=== PATIENT | female | born 1950 | race Caucasian/White ===

== ENCOUNTER 2017-05-26 13:14 | Inpatient (IN) | payer OTHER ==
[~2017-05-26] VITALS: Ht 165.1 cm; Wt 67.6 kg
[2017-05-26] MEDS ORDERED: METFORMIN HCL850 MG PO (15:39)
[2017-05-26] MEDS ORDERED: ZOCOR5 MG PO (15:39)
[2017-05-26] MEDS ORDERED: COZAAR100 MG PO (15:39)
[2017-05-26] MEDS ORDERED: TRAZODONE HCL50 MG PO (15:40)
== END 2017-05-31 11:24 | disposition home or self-care (01) | DRG 735 ==
LOC: O/R 05-29 05:00 → OB/GYN 05-29 05:00 → SURH 05-29 11:30 → OB/GYN 05-29 13:18
PROVIDERS: Obstetrics & Gynecology Gynecologic Oncology
PROC: 07TD0ZZ Resection of Aortic Lymphatic, Open Approach (ICD-10-PCS; 2017-05-29)
PROC: 0UT20ZZ Resection of Bilateral Ovaries, Open Approach (ICD-10-PCS; 2017-05-29)
PROC: 07TC0ZZ Resection of Pelvis Lymphatic, Open Approach (ICD-10-PCS; 2017-05-29)
PROC: 0DTU0ZZ Resection of Omentum, Open Approach (ICD-10-PCS; 2017-05-29)
PROC: 3E1M38Z Irrigation of Peritoneal Cavity using Irrigating Substance, Percutaneous Approach (ICD-10-PCS; 2017-05-29)
PROC: 0UT70ZZ Resection of Bilateral Fallopian Tubes, Open Approach (ICD-10-PCS; principal; 2017-05-29 11:30)
DX: C56.1 Malignant neoplasm of right ovary (principal); N83.292 Other ovarian cyst, left side